=== PATIENT | female | born 1930 | race Hispanic/Latino ===

== ENCOUNTER 2017-12-12 18:47 | Inpatient (IN) | payer SELFPAY ==
--- NOTE | 2017-12-12 19:48 | RAD REPORT ---
EXAM DESCRIPTION: CT - Head Brain Wo Cont - 12/12/2017 7:41 pm CLINICAL HISTORY: Alteration of consciousness COMPARISON: July 2017 TECHNIQUE: Computed axial tomography of the head was obtained. IV contrast was not requested. All CT scans are performed using dose optimization technique as appropriate and may include automated exposure control or mA/KV adjustment according to patient size. FINDINGS: An intracranial bleed is not seen . The ventricles are normal in caliber. Cerebral atrophy is noted. No extra-axial fluid collection is noted. Moderate low-density areas within periventricular, deep and subcortical white matter likely represent ischemic changes secondary to small vessel disease. Fluid within the sinuses/ mastoids is not seen. IMPRESSION: No acute intracranial abnormality is seen. If patient's symptoms persist MRI of the bra in would be recommended.
[2017-12-12] MEDS ORDERED: NA CHLORIDE 0.9% 500 ML ONE (19:57)
[2017-12-12] MEDS ORDERED: NA CHLORIDE 0.9% 1,000 ML ONE (19:58)
--- NOTE | 2017-12-12 19:58 | RAD REPORT ---
EXAM DESCRIPTION: Cindy Single View12/12/2017 7:47 pm CLINICAL HISTORY: cough COMPARISON: February 2017 FINDINGS: The lungs appear clear of acute infiltrate. The heart is markedly enlarged. Scoliosis inv olves the thoracolumbar spine IMPRESSION: No acute abnormalities displayed
[2017-12-12 20:15] LABS: Absolute Lymphocytes (CBC) 0.8 K/uL (0.7-4.9); Absolute Monocytes 0.4 K/uL (0.1-1.3); Absolute Neutrophil 6.8 K/uL (1.8-8.0); Basophils % 0.7 % (0-1.3); Eosinophils % 1.8 % (0-4.4); Hematocrit 42.9 % (36.0-45.0); Lymphocytes % 9.3 % (15.3-44.8); MCV 92.4 fL (80-100); MPV 9.3 fL (7.6-11.3); Monocytes % 5.3 % (3.3-12.3); RBC Red Blood Cell Count 4.65 M/uL (3.86-4.86)
[2017-12-12 21:09] LABS: CKMB Creatine Kinase MB 3.7 ng/ml (0.3-4.0)
[2017-12-12 21:15] LABS: Albumin 3.9 g/dL (3.2-5.5); Bilirubin Direct 0.3 mg/dL (0-0.2); Bilirubin Total 0.6 mg/dL (0.3-1.2); Magnesium 2.1 mg/dL (1.8-2.5); Protein, Total 7.2 g/dL (6.0-8.3)
[2017-12-12 21:19] LABS: Potassium 5.5 mEq/L (3.6-5.0)
--- NOTE | 2017-12-12 21:19 | ER ---
Nurse's Notes [facility] Name: Jael Williamson Age: 87 yrs Sex: Female : 1930 Arrival Date: 12/12/2017 Time: 18:48 Bed 4 Private MD: Diagnosis: Cardiomegaly;Atrial fibrillation and flutter;Syncope and collapse;Scoliosis;Unspecified kidney failure;Hyperkalemia Presentation: 12/12 18:43 Presenting complaint: EMS states: Pt was sitting in her chair at home and family stated sv that she became unresponsive and wasn't answering anything. Pt was having irregular breathing upon EMS arrival. EMS stated pt is more alert and awake than when they picked her up. BP on arrival 80/42, NS 200 ml bolus given, BP up to 138/75. EKG Afib 55, ASA 324 mg PO given. EN route pt pulled out her IV to the right FA. Family stated to EMS last time she was like this was because of dehydration. Transition of care: patient was not received from another setting of care. Onset of symptoms was December 12, 2017. Care prior to arrival: Medication(s) given: ASA, 81 mg, x 4, Normal saline infusion, 200 mls. 18:43 Method Of Arrival: EMS: [facility] sv 18:43 Acuity: CHER 2 sv Triage Assessment: 18:53 General: Appears in no apparent distress. comfortable, slender, Behavior is sv cooperative. Pain: Denies pain. EENT: No signs and/or symptoms were reported regarding the EENT system. Neuro: Level of Consciousness is awake, alert, confused, Oriented to person, Moves all extremities. Speech is normal. Cardiovascular: Patient's skin is warm and dry. Pulses are 3+ in right radial artery and left radial artery. Respiratory: Respiratory effort is even, unlabored, Respiratory pattern is regular, symmetrical. Derm: Skin is normal. Historical: - Allergies: 18:53 No Known Allergies; sv - Home Meds: 22:12 metoprolol tartrate 50 mg Oral tab once daily [Active]; bp - PMHx: 18:53 Atrial Fib; Dementia; Hypertension; sv - PSHx: 18:53 None; sv - Immunization history:: Adult Immunizations up to date. - Family history:: not pertinent. - Social history:: Smoking status: Patient/guardian denies using tobacco. Screenin:02 Abuse screen: Denies threats or abuse. Denies injuries from another. Nutritional sv screening: No deficits noted. Tuberculosis screening: No symptoms or risk factors identified. Fall Risk No fall in past 12 months (0 pts). Secondary diagnosis (15 points) dementia, IV access (20 points). Ambulatory Aid- None/Bed Rest/Nurse Assist (0 pts). Gait- Weak (10 pts.). Mental Status- Overestimates/Forgets Limitations (15 pts.). Total Gaytan Fall Scale indicates High Risk Score (45 or more points). Fall prevention measures have been instituted. Side Rails Up X 2 Frequent Obs/Assessments Occuring. Assessment: 19:00 Reassessment: RECD REPORT FROM DEYA OAKLEY. 87YO HF P/W POSSIBLE AMS, FOUND TO BE bp HYPOTENSIVE ON SCENE. NS GIVEN EN ROUTE, PT NOW AO4. PT AND FAMILY POOR HISTORIANS. 19:01 Reassessment: See triage assessment. sv 19:53 Reassessment: PT RETURNED FROM CT. LAB AT B/S FOR BLOOD DRAW. bp 21:26 Reassessment: STRAIGHT CATH BY ED STAFF. ADMIT IN PROCESS, ALL CURRENT ORDERS COMPLETED.bp 23:30 Reassessment: REPORT BY HÉCTOR OAKLEY TO VAN OAKLEY. PT SHERI WITH PCT. bp Vital Signs: 18:55 BP 138 / 88; Pulse 65; Resp 20; Pulse Ox 99% on R/A; Pain 0/10; sv 19:00 BP 138 / 88; Pulse 70; Resp 18; Pulse Ox 92% on R/A; Weight 44.91 kg; bp 21:35 BP 169 / 84; Pulse 80; Resp 18; Pulse Ox 95% on R/A; mt 21:38 BP 163 / 92; Pulse 78; Resp 20; Pulse Ox 95% on R/A; mt 22:30 BP 132 / 105; Pulse 72; Resp 23; Pulse Ox 97% ; bp ED Course: 18:48 Patient arrived in ED. sv 18:49 Deya Blanchard, RN is Primary Nurse. sv 18:50 Patient has correct armband on for positive identification. Placed in gown. Bed in low sv position. Side rails up X2. banker mason on. Pulse ox on. NIBP on. Head of bed elevated. 18:52 Triage completed. sv 18:54 Arm band placed on right wrist. sv 19:01 Inserted saline lock: 24 gauge in left antecubital area, using aseptic technique. sv ,using aseptic technique. done by Colleen OAKLEY. 19:03 EKG done, by ED staff, reviewed by Jesus Penaloza MD. jb1 19:15 Jerrod Miller MD is Attending Physician. daily 19:15 Report given to Mckay OAKLEY. sv 19:16 Primary Nurse role handed off by Deya Blanchard RN sv 19:27 Mckay Livingston, CELE is Primary Nurse. bp 19:[address] nj 19:41 CT Head Brain wo Cont In Process Unspecified. EDMS 19:41 CT completed. Patient tolerated procedure well. Patient moved back from CT. nj 19:47 X-ray completed. Portable x-ray completed in exam room. Patient tolerated procedure ml well. 19:47 XRAY Chest (1 view) In Process Unspecified. EDMS 21:00 Inserted saline lock: 24 gauge in right hand, using aseptic technique. bp 21:17 Ailin Jane MD is Hospitalizing Provider. daily 21:25 Inserted saline lock: 18 gauge in left EJ, using aseptic technique. Blood collected. bp 21:34 Miller cath inserted, using sterile technique, 16 Fr., by ne, balloon inflated, to ga gravity drainage, urine specimen collected. 22:10 No provider procedures requiring assistance completed. Patient admitted, IV remains in bp place. Administered Medications: Discontinued: NS 0.9% 1000 ml IV at 125 ml/hr continuous 20:02 Drug: NS 0.9% 500 ml Route: IV; Rate: bolus; Site: left forearm; bp 21:22 Follow up: IV Status: Completed infusion bp 20:02 Drug: NS 0.9% 1000 ml Route: IV; Rate: 125 ml/hr; Site: left forearm; bp 21:23 Follow up: IV Status: Order to discontinue infusion bp 21:40 Drug: Lopressor (metoprolol TARTRATE) 50 mg Route: PO; bp 22:39 Follow up: Response: No adverse reaction bp 21:40 Drug: Lovenox 1 mg/kg Route: Sub-Q; Site: left lower abdomen; bp 22:40 Follow up: Response: No adverse reaction bp 21:40 Drug: ProTONIX 40 mg Route: IVP; Site: left jugular; bp 22:40 Follow up: Response: No adverse reaction bp 21:50 Drug: Lasix 20 mg Route: IVP; Site: left jugular; bp 22:41 Follow up: Response: No adverse reaction bp 21:50 Drug: Kayexalate 15 grams Route: PO; bp 22:41 Follow up: Response: No adverse reaction bp 21:50 Drug: Ativan 0.25 mg Route: IVP; Site: left jugular; bp 22:41 Follow up: Response: No adverse reaction bp 21:50 Drug: Ativan 0.25 mg Route: IVP; Site: left jugular; bp 22:42 Follow up: Response: Anxiety decreased bp Outcome: 21:18 Decision to Hospitalize by Provider. daily 12/13 00:09 Admitted to Tele bp Condition: stable Instructed on the need for admit. 00:10 Patient left the ED. bp Signatures: Dispatcher [employer] EDMichael Antonio Stephanie, CELE RN Jerrod Eid MD MD cha Lopez, Melissa ml Jordan, Nathan nj Thompson [facility] Mckay Livingston RN RN bp Corrections: (The following items were deleted from the chart) 12/12 19:05 18:55 Pulse 65bpm; Resp 20bpm; Pulse Ox 99% RA; Pain 0/10; sv sv 21:22 19:00 BP 138 / 88; Pulse 70bpm; Resp 18bpm; Pulse Ox 92% RA; bp bp 22:12 18:53 Home Meds: None; sv bp
--- NOTE | 2017-12-12 21:19 | EDPHYS ---
Physician Documentation [facility] Name: Jael Williamson Age: 87 yrs Sex: Female : 1930 Arrival Date: 12/12/2017 Time: 18:48 Bed 4 Private MD: ED Physician Jerrod Miller HPI: 12/12 19:23 This 87 yrs old Female presents to ER via EMS with complaints of Unresponsive, daily Near Syncope. 19:23 The patient has experienced near-syncope, almost passed out. Onset: The daily symptoms/episode began/occurred just prior to arrival, this morning. Duration: This was a single episode, that lasted 20 second(s). Context: the episode(s) was witnessed, by family. Associated injury: The patient did not suffer any apparent associated injury. Associated signs and symptoms: The patient has no apparent associated signs or symptoms. Current symptoms: Currently, the patient is not experiencing any symptoms. The patient has not experienced similar symptoms in the past. Historical: - Allergies: 18:53 No Known Allergies; sv - Home Meds: 22:12 metoprolol tartrate 50 mg Oral tab once daily [Active]; bp - PMHx: 18:53 Atrial Fib; Dementia; Hypertension; sv - PSHx: 18:53 None; sv - Immunization history:: Adult Immunizations up to date. - Family history:: not pertinent. - Social history:: Smoking status: Patient/guardian denies using tobacco. ROS: 19:23 Constitutional: Negative for fever, chills, and weight loss, Eyes: Negative for injury, daily pain, redness, and discharge, ENT: Negative for injury, pain, and discharge, Neck: Negative for injury, pain, and swelling, Cardiovascular: Negative for chest pain, palpitations, and edema, Respiratory: Negative for shortness of breath, cough, wheezing, and pleuritic chest pain, Abdomen/GI: Negative for abdominal pain, nausea, vomiting, diarrhea, and constipation, Back: Negative for injury and pain, : Negative for injury, bleeding, discharge, and swelling, MS/Extremity: Negative for injury and deformity, Skin: Negative for injury, rash, and discoloration, Psych: Negative for depression, anxiety, suicide ideation, homicidal ideation, and hallucinations, Allergy/Immunology: Negative for hives, rash, and allergies, Endocrine: Negative for neck swelling, polydipsia, polyuria, polyphagia, and marked weight changes, Hematologic/Lymphatic: Negative for swollen nodes, abnormal bleeding, and unusual bruising. 19:23 Neuro: Positive for near syncope, weakness. Exam: 19:23 Constitutional: This is a well developed, well nourished patient who is awake, alert, daily and in no acute distress. Head/Face: Normocephalic, atraumatic. Eyes: Pupils equal round and reactive to light, extra-ocular motions intact. Lids and lashes normal. Conjunctiva and sclera are non-icteric and not injected. Cornea within normal limits. Periorbital areas with no swelling, redness, or edema. ENT: Nares patent. No nasal discharge, no septal abnormalities noted. Tympanic membranes are normal and external auditory canals are clear. Oropharynx with no redness, swelling, or masses, exudates, or evidence of obstruction, uvula midline. Mucous membranes moist. Neck: Trachea midline, no thyromegaly or masses palpated, and no cervical lymphadenopathy. Supple, full range of motion without nuchal rigidity, or vertebral point tenderness. No Meningismus. Chest/axilla: Normal chest wall appearance and motion. Nontender with no deformity. No lesions are appreciated. Cardiovascular: Regular rate and rhythm with a normal S1 and S2. No gallops, murmurs, or rubs. Normal PMI, no JVD. No pulse deficits. Respiratory: Lungs have equal breath sounds bilaterally, clear to auscultation and percussion. No rales, rhonchi or wheezes noted. No increased work of breathing, no retractions or nasal flaring. Abdomen/GI: Soft, non-tender, with normal bowel sounds. No distension or tympany. No guarding or rebound. No evidence of tenderness throughout. Back: No spinal tenderness. No costovertebral tenderness. Full range of motion. Female : Normal external genitalia. Skin: Warm, dry with normal turgor. Normal color with no rashes, no lesions, and no evidence of cellulitis. MS/ Extremity: Pulses equal, no cyanosis. Neurovascular intact. Full, normal range of motion. Neuro: Awake and alert, GCS 15, oriented to person, place, time, and situation. Cranial nerves II-XII grossly intact. Motor strength 5/5 in all extremities. Sensory grossly intact. Cerebellar exam normal. Normal gait. Psych: Awake, alert, with orientation to person, place and time. Behavior, mood, and affect are within normal limits. Vital Signs: 18:55 BP 138 / 88; Pulse 65; Resp 20; Pulse Ox 99% on R/A; Pain 0/10; sv 19:00 BP 138 / 88; Pulse 70; Resp 18; Pulse Ox 92% on R/A; Weight 44.91 kg; bp 21:35 BP 169 / 84; Pulse 80; Resp 18; Pulse Ox 95% on R/A; mt 21:38 BP 163 / 92; Pulse 78; Resp 20; Pulse Ox 95% on R/A; mt 22:30 BP 132 / 105; Pulse 72; Resp 23; Pulse Ox 97% ; bp MDM: 19:15 Patient medically screened. [facility] 21:18 Data reviewed: vital signs, nurses notes, lab test result(s), EKG, radiologic studies, [facility] CT scan, plain films. 12/12 19:23 Order name: Basic Metabolic Panel [facility] 12/12 19:23 Order name: BNP; Complete Time: 21:13 [facility] 12/12 19:23 Order name: CBC with Diff; Complete Time: 20:39 [facility] 12/12 19:23 Order name: Ckmb [facility] 12/12 19:23 Order name: CPK [facility] 12/12 19:23 Order name: LFT's [facility] 12/12 19:23 Order name: Magnesium [facility] 12/12 19:23 Order name: PT-INR [facility] 12/12 19:23 Order name: Ptt, Activated [facility] 12/12 19:23 Order name: Troponin (emerg Dept Use Only); Complete Time: 20:39 [facility] 12/12 19:23 Order name: Lipase [facility] 12/12 19:23 Order name: Urine Culture [facility] 12/12 19:26 Order name: TSH; Complete Time: 21:13 [facility] 12/12 21:34 Order name: Urine Dipstick--Ancillary (enter results) em1 12/12 19:03 Order name: EKG - Nurse/Tech; Complete Time: 19:03 12/12 19:03 Order name: EKG; Complete Time: 19:04 12/12 19:23 Order name: XRAY Chest (1 view); Complete Time: 20:39 [facility] 12/12 19:23 Order name: CT Head Brain wo Cont; Complete Time: 20:39 [facility] 12/12 21:24 Order name: CONS Physician Consult [facility] 12/12 21:24 Order name: Echo with Doppler [facility] 12/12 21:57 Order name: Urine Dipstick-Ancillary [facility] 12/12 19:23 Order name: Cardiac monitoring; Complete Time: 19:52 [facility] 12/12 19:23 Order name: IV Saline Lock; Complete Time: 19:52 [facility] 12/12 19:23 Order name: O2 Per Protocol; Complete Time: 19:52 [facility] 12/12 19:23 Order name: O2 Sat Monitoring; Complete Time: 19:52 [facility] 12/12 19:23 Order name: Urine Dipstick-Ancillary (obtain specimen); Complete Time: 21:33 [facility] 12/12 21:24 Order name: Miller; Complete Time: 21:34 [facility] Administered Medications: Discontinued: NS 0.9% 1000 ml IV at 125 ml/hr continuous 20:02 Drug: NS 0.9% 500 ml Route: IV; Rate: bolus; Site: left forearm; bp 21:22 Follow up: IV Status: Completed infusion bp 20:02 Drug: NS 0.9% 1000 ml Route: IV; Rate: 125 ml/hr; Site: left forearm; bp 21:23 Follow up: IV Status: Order to discontinue infusion bp 21:40 Drug: Lopressor (metoprolol TARTRATE) 50 mg Route: PO; bp 22:39 Follow up: Response: No adverse reaction bp 21:40 Drug: Lovenox 1 mg/kg Route: Sub-Q; Site: left lower abdomen; bp 22:40 Follow up: Response: No adverse reaction bp 21:40 Drug: ProTONIX 40 mg Route: IVP; Site: left jugular; bp 22:40 Follow up: Response: No adverse reaction bp 21:50 Drug: Lasix 20 mg Route: IVP; Site: left jugular; bp 22:41 Follow up: Response: No adverse reaction bp 21:50 Drug: Kayexalate 15 grams Route: PO; bp 22:41 Follow up: Response: No adverse reaction bp 21:50 Drug: Ativan 0.25 mg Route: IVP; Site: left jugular; bp 22:41 Follow up: Response: No adverse reaction bp 21:50 Drug: Ativan 0.25 mg Route: IVP; Site: left jugular; bp 22:42 Follow up: Response: Anxiety decreased bp Disposition: 12/12/17 21:18 Hospitalization ordered by Ailin Jane for Inpatient Admission. Preliminary diagnosis are Cardiomegaly, Atrial fibrillation and flutter, Syncope and collapse, Scoliosis, Unspecified kidney failure, Hyperkalemia. - Bed requested for Telemetry/MedSurg (Inpatient). - Status is Inpatient Admission. bp - Condition is Fair. - Problem is new. - Symptoms have improved. UTI on Admission? No Signatures: Dispatcher [employer] Deya Luna RN RN sv Webb, Martha, RN RN mw Anderson, Corey, MD MD cha Baxter, Heather, RN RN Mckay Livingston RN RN bp Corrections: (The following items were deleted from the chart) 22:12 18:53 Home Meds: None; bp
[2017-12-12] MEDS ORDERED: PANTOPRAZOLE 40 MG INJ ONE (21:40)
[2017-12-12] MEDS ORDERED: FUROSEMIDE 20 MG/ 2ML VIAL ONE (21:40)
[2017-12-12] MEDS ORDERED: METOPROLOL TAR 50 MG TAB ONE (21:40)
[2017-12-12] MEDS ORDERED: SOD POLYSTYREN SUL 15 GM/60 ML UCUP ONE (21:41)
[2017-12-12] MEDS ORDERED: ENOXAPARIN 60 MG/0.6 ML SQ ONE (21:41)
[2017-12-12] MEDS ORDERED: LORazepam 2 MG/ML VIAL ONE (21:43)
[2017-12-12 21:56] LABS: Protime INR 1.05
[2017-12-12 21:56] LABS: Urine Blood TRACE (NEG); Urine Glucose NEGATIVE (NEG); Urine Protein 1+ (NEG)
[2017-12-12] MEDS ORDERED: ALPRAZOLAM 0.25 MG TABLET PO PRN (21:59)
[2017-12-12] MEDS ORDERED: MORPHINE 4 MG/ML SYR IV PRN (21:59)
[2017-12-12] MEDS ORDERED: ACETAMINOPHEN 500 MG TAB PO PRN (21:59)
--- NOTE | 2017-12-13 07:03 | EKG ---
Test Date: 2017-12-12 Test Time: 18:58:16 Simulation Technician: ISHAN MEASUREMENT RESULTS: Intervals: Rate: 63 RI: QRSD: 82 QT: 470 QTc: 480 [place]: P: RI: QRS: 69 T: 220 INTERPRETIVE STATEMENTS: Atrial fibrillation Moderate voltage criteria for LVH, may be normal variant ST & T wave abnormality, consider inferolateral ischemia Prolonged QT Abnormal ECG Compared to ECG 02/20/2017 18:27:48 Left ventricular hypertrophy now present Prolonged QT interval now present Ventricular premature complex(es) no longer present Electronically Signed On 12-13-17 07:03:13 CDT by Edu Mcclure
--- NOTE | 2017-12-13 07:27 | P.HP ---
Certification for Inpatient Patient admitted to: Inpatient With expected LOS: >2 Midnights Patient will require the following post-hospital care: None Practitioner: I am a practitioner with admitting privileges, knowledge of patient current condition, hospital course, and medical plan of care. Services: Services provided to patient in accordance with Admission requirements found in Title 42 Section 412.3 of the Code of Federal Regulations Patient History Date of Service: 12/12/17 Reason for admission: Altered mental status History of Present Illness: Patient is an 87-year-old female came into the hospital after being found unresponsive. She had an episode where she was not responsive but she finally came too after about 20 seconds. Patient has a history of dementia and atrial fibrillation. Patient is only Urdu speaking. There was no family when I came to see the patient but according to the emergency room when EMS arrived patient was short of breath. Patient has clinically improved since being picked up by EMS. Patient is more alert and her respiratory status is improved. Patient has had a prior episode similar to this when she was dehydrated. In the emergency room she was found have prerenal azotemia and hyperkalemia. She will be admitted to the hospital for further evaluation. Allergies No Known Allergies Allergy (Verified 09/13/16 20:43) Home Medications: Quetiapine [Seroquel*] 25 mg PO DAILY #30 tab 09/08/16 Valsartan [Diovan*] 40 mg PO BID #60 tab 09/14/16 - Past Medical/Surgical History Diabetic: No -: HTN -: Dementia -: Kidney disease Past Surgical History: Unable to obtain - Family History Father History Unknown: Yes Mother History Unknown: Yes - Social History Smoking Status: Never smoker Alcohol use: No CD- Drugs: No Caffeine use: No Review of Systems 10-point ROS is otherwise unremarkable Physical Examination - Vital Signs Temperature: 97.1 F Blood Pressure: 146/82 Pulse: 96 Respirations: 18 Pulse Ox (%): 97 - Physical Exam General: Alert, Oriented x1, Confused HEENT: Atraumatic, PERRLA, Mucous membr. moist/pink, EOMI, Sclerae nonicteric Neck: Supple, 2+ carotid pulse no bruit, No LAD, Without JVD or thyroid abnormality Respiratory: Diminished, Crackles/rales Cardiovascular: Irregular heart rate/rhythm, Systolic murmur Gastrointestinal: Normal bowel sounds, Soft and benign, Non-distended, No tenderness Musculoskeletal: No clubbing, No swelling, No tenderness Integumentary: No rashes Neurological: Normal speech, Normal tone, Sensation intact, Cranial nerves 3-12 intact, Normal affect, Abnormal gait, Abnormal strength Lymphatics: No axilla or inguinal lymphadenopathy - Studies Laboratory Data (last 24 hrs) 12/12/17 21:15: PT 12.4, INR 1.05, APTT 25.1 12/12/17 20:40: Sodium 142, Potassium 5.5 H, BUN 34 H, Creatinine 1.74 H, Glucose 105, Magnesium 2.1, Total Bilirubin 0.6, AST 27, ALT 11, Alkaline Phosphatase 69, Lipase 27 12/12/17 20:02: WBC 8.3, Hgb 14.4, Hct 42.9, Plt Count 141 L 12/12/17 20:02: B-Natriuretic Peptide 555 H Assessment & Plan - Problems (Diagnosis) (1) Hyperkalemia Current Visit: Yes Status: Acute (2) Prerenal azotemia Current Visit: Yes Status: Acute (3) Dehydration Onset Date: 09/14/16 Current Visit: No Status: Acute (4) Left hip pain Onset Date: 09/07/16 Current Visit: No Status: Acute (5) Syncope Onset Date: 09/14/16 Current Visit: No Status: Acute Qualifiers: Encounter type: initial encounter (6) Atrial fibrillation Onset Date: 09/07/16 Current Visit: No Status: Chronic Qualifiers: Atrial fibrillation type: persistent Qualified Code(s): I48.1 - Persistent atrial fibrillation (7) Essential hypertension Current Visit: No Status: Chronic - Plan Plan: 1. IV hydration 2. Recheck potassium level 3. Medication for rate control along with anti coagulation 4. Cardiology consultation 5. Echocardiogram 6. Out of bed and ambulate 7. GI and DVT prophylaxis - Advance Directives Does patient have a Living Will: No Does patient have a Durable POA for Healthcare: No - Code Status/Comfort Care Code Status Assessed: Yes Code Status: Full Code Critical Care: No Time Spent Managing PTS Care (In Minutes): 50
[2017-12-13 07:28] LABS: Absolute Monocytes 0.4 K/uL (0.1-1.3); Absolute Neutrophil 3.4 K/uL (1.8-8.0); Basophils % 0.8 % (0-1.3); Eosinophils % 3.4 % (0-4.4); Hematocrit 40.8 % (36.0-45.0); Lymphocytes % 19.5 % (15.3-44.8); MCH 30.7 pg (27.0-35.0); MCV 93.2 fL (80-100); MPV 9.8 fL (7.6-11.3); Monocytes % 8.6 % (3.3-12.3); RBC Red Blood Cell Count 4.37 M/uL (3.86-4.86)
[2017-12-13 07:45] LABS: Magnesium 1.8 mg/dL (1.8-2.5); Phosphorus 3.9 mg/dL (2.5-4.3)
[2017-12-13] MEDS ORDERED: METOPROLOL TAR 50 MG TAB PO SCH (09:00)
[2017-12-13] MEDS ORDERED: VALSARTAN 40 MG TAB PO SCH (09:00)
[2017-12-13] MEDS ORDERED: QUETIAPINE 25 MG TAB PO SCH ×2 (10:00→23:00)
--- NOTE | 2017-12-13 12:23 | ECHO ---
HEIGHT: 5 ft 1 in WEIGHT: 100 lb 6.4 oz DATE OF STUDY: 12/13/[address]: Jerrod Miller MD 2-DIMENSIONAL: YES M.MODE: YES DOPPLER: YES COLOR FLOW: YES TDS: PORTABLE: DEFINITY: BUBBLE STUDY: DIAGNOSIS: CONGESTIVE HEART FAILURE CARDIAC HISTORY: CATHERIZATION: NO SURGERY: NO PROSTHETIC VALVE: NO PACEMAKER: NO MEASUREMENTS (cm) DIASTOLIC (NORMALS) SYSTOLIC (NORMALS) IVSd 1.3 (0.6-1.2) LA Diam 4.6 (1.9-4.0) LVEF 46% LVIDd 4.9 (3.5-5.7) LVIDs 3.8 (2.0-3.5) %FS 23% LVPWd 1.3 (0.6-1.2) Ao Diam 3.4 (2.0-3.7) 2 DIMENSIONAL ASSESSMENT: RIGHT ATRIUM: DILATED LEFT ATRIUM: DILATED RIGHT VENTRICLE: NORMAL LEFT VENTRICLE: NORMAL TRICUSPID VALVE: NORMAL MITRAL VALVE: NORMAL PULMONIC VALVE: NORMAL AORTIC VALVE: NORMAL PERICARDIAL EFFUSION: NONE AORTIC ROOT: NORMAL LEFT VENTRICULAR WALL MOTION: MILD GLOBAL HYPOKINESIS DOPPLER/COLOR FLOW: MILD TO MODERATE MITRAL AND TRICUSPID REGURGITAITON. COMMENTS: DEPRESSED LEFT VENTRICULAR EJECTION FRACTION. DILATED LEFT AND RIGHT ATRIUM. MILD TO MODERATE MITRAL AND TRICUSPID REGURGITATION. ATRIAL FIBRILLATION 50-70 BEATS PER MINUTE. TECHNOLOGIST: DELFINA QUINTANILLA
--- NOTE | 2017-12-13 16:45 | P.SSS ---
Patient History Date of Service: 12/13/17 Primary Care Provider: Unknown Reason for admission: Altered mental status History of Present Illness: Patient is an 87-year-old female came into the hospital after being found unresponsive. She had an episode where she was not responsive but she finally came too after about 20 seconds. Patient has a history of dementia and atrial fibrillation. Patient is only Czech speaking. There was no family when I came to see the patient but according to the emergency room when EMS arrived patient was short of breath. Patient has clinically improved since being picked up by EMS. Patient is more alert and her respiratory status is improved. Patient has had a prior episode similar to this when she was dehydrated. In the emergency room she was found have prerenal azotemia and hyperkalemia. She will be admitted to the hospital for further evaluation. Allergies No Known Allergies Allergy (Verified 09/13/16 20:43) Home Medications: Metoprolol Tartrate [Lopressor*] 25 mg PO DAILY #30 tab 12/13/17 - Past Medical/Surgical History Diabetic: No -: HTN -: Dementia -: Kidney disease - Family History Father History Unknown: Yes Mother History Unknown: Yes - Social History Smoking Status: Never smoker Alcohol use: No CD- Drugs: No Caffeine use: No Review of Systems 10-point ROS is otherwise unremarkable Physical Examination - Vital Signs Temperature: 97 F Blood Pressure: 145/77 Pulse: 55 Respirations: 16 Pulse Ox (%): 94 - Physical Exam General: In no apparent distress, Oriented x1, Disheveled HEENT: Atraumatic Neck: Supple Respiratory: Clear to auscultation bilaterally, Normal air movement Cardiovascular: Normal S1 S2, Irregular heart rate/rhythm Gastrointestinal: Normal bowel sounds, No tenderness Musculoskeletal: No tenderness Integumentary: No rashes Neurological: Normal gait, Normal speech, Normal strength at 5/5 x4 extr, Normal tone, Normal affect Lymphatics: No axilla or inguinal lymphadenopathy - Studies Laboratory Data (last 24 hrs) 12/12/17 21:15: PT 12.4, INR 1.05, APTT 25.1 12/12/17 20:40: Sodium 142, Potassium 5.5 H, BUN 34 H, Creatinine 1.74 H, Glucose 105, Magnesium 2.1, Total Bilirubin 0.6, AST 27, ALT 11, Alkaline Phosphatase 69, Lipase 27 12/12/17 20:02: WBC 8.3, Hgb 14.4, Hct 42.9, Plt Count 141 L 12/12/17 20:02: B-Natriuretic Peptide 555 H - Diagnosis (Problem(s)) (1) Orthostatic hypotension Status: Resolved (2) Atrial fibrillation Onset Date: 09/07/16 Status: Chronic Qualifiers: Atrial fibrillation type: persistent Qualified Code(s): I48.1 - Persistent atrial fibrillation (3) Essential hypertension Status: Chronic Treatment Summary: Pt was admitted to the hospital after having an episode of unresponsiveness for 20 seconds after which she was better and responding to command and back to her baseline. Pt does have advanced dementia and at baseline is not alert or orientated. -Cardiology was consulted. Who reccs pt be discharged home with lower dose of metoprolol as it possible that pt may have had orthostatic hypotension. -Pt was thus discharged home under stable condition -Pt was getting more agitated while here in the hospital and thus was given a ppx for ativan. - Disposition Disposition: ROUTINE DISCHARGE Condition: GOOD Patient Discharge Instructions: Please f/u with Dr Potter in 1 week post discharge. New medication metoprolol 25mg Daily. It has been decreased from your normal dose of 50mg daily Diet: Regular Activity: Ad arleth
[2017-12-13] MEDS ORDERED: ENOXAPARIN 60 MG/0.6 ML SQ SCH (17:00)
--- NOTE | 2017-12-15 12:20 | CON ---
Date of Consultation: 12/13/2017 Reason For Consultation: Atrial fibrillation and presyncope. History Of Present Illness: Ms. Williamson is 87. She has a history of hypertension, dementia, and at rial fibrillation. Came in with presyncopal episode. Witnessed by the daughter. No chest pain, elena sea, vomiting, diaphoresis, PND, orthopnea, or pedal edema reported. There were no fever or chills r eported. Ms. Williamson had similar symptoms in September of 2016. At that time, she had a normal echoc ardiogram. I had asked at that time that she stops her metoprolol, but there is confusion on what sh e has taken. Her medical records list Seroquel, valsartan, and metoprolol. Allergies: NONE. Review of Systems: Negative. Social History: Negative. Family History: Negative. Medications: As listed earlier. Physical Examination: Vital Signs: Stable. She was in atrial fibrillation at a rate of 80. HEENT: Negative. Neck: Supple. No bruit. Chest: Clear to auscultation and percussion. Cardiac: Revealed atrial fibrillation. No murmurs, gallops, or rubs. Abdomen: Benign. Extremities: Revealed No clubbing, cyanosis, or edema. Diagnostics Data: Showed her creatinine is 1.74. BNP was 555. CT of the head was negative. Chest x-ray was negative. Impression And Plan: Presyncope, more likely secondary to vasovagal reaction or orthostatic hypotens ion. I doubt that we are dealing with sick sinus syndrome, but certainly her metoprolol needs to be decreased or discontinued and I would continue the valsartan and Seroquel. Echocardiogram is pending . Her blood pressure is well controlled. Her atrial fibrillation rate is well controlled. I do not want to embark on a very invasive workup on Ms. Williamson for now considering her age and her renal i nsufficiency. I will see what her echocardiogram shows and if that looks normal, we can probably sen d her home. Case was discussed with Dr. Metcalf. BETZAIDA/EDEL Voice ID: [id number] Report ID: [id number]
== END 2017-12-13 14:38 | disposition home or self-care (01) | DRG 312 ==
LOC: ER 18:47 → ERHOLD 21:21 → 4TH 23:22
PROVIDERS: ADMIT Hospitalist; ATTEND Hospitalist
DX: I95.1 Orthostatic hypotension (principal); I48.1 Persistent atrial fibrillation; I10 Essential (primary) hypertension; F03.90 Unspecified dementia, unspecified severity, without behavioral disturbance, psychotic disturbance, mood disturbance, and anxiety; E87.5 Hyperkalemia; R79.89 Other specified abnormal findings of blood chemistry; E86.0 Dehydration
CPT/HCPCS: 36415; 51702; 70450; 71045; 80048; 80076; 81003; 82550; 82553; 83690; 83735; 83880; 84100; 84443; 84484; 85025; 85610; 85730; 87086; 87088; 93005; 93306; 96361; 96372; 96374; 96375; 99285; C9113; J1650; J1940; J7030

== ENCOUNTER 2018-02-12 14:10 | Emergency (ER) | payer SELFPAY ==
[2018-02-12] MEDS ORDERED: NA CHLORIDE 0.9% 500 ML ONE ×2 (15:10→16:26)
[2018-02-12 15:35] LABS: Absolute Monocytes 0.5 K/uL (0.1-1.3); Absolute Neutrophil 4.4 K/uL (1.8-8.0); Eosinophils % 2.7 % (0-4.4); Hematocrit 42.5 % (36.0-45.0); Lymphocytes % 16.6 % (15.3-44.8); MCH 30.6 pg (27.0-35.0); MPV 9.3 fL (7.6-11.3); Monocytes % 7.5 % (3.3-12.3); RBC Red Blood Cell Count 4.57 M/uL (3.86-4.86)
[2018-02-12 15:48] LABS: Potassium 4.2 mEq/L (3.6-5.0)
[2018-02-12 15:54] LABS: Albumin 3.7 g/dL (3.2-5.5); Bilirubin Direct 0.1 mg/dL (0-0.2); Bilirubin Total 0.8 mg/dL (0.3-1.2); Protein, Total 6.9 g/dL (6.0-8.3)
--- NOTE | 2018-02-12 15:57 | RAD REPORT ---
EXAM DESCRIPTION: RAD - Chest Pa And Lat (2 Views) - 02/12/2018 3:38 pm CLINICAL HISTORY: Fall, chest pain COMPARISON: 12/12/2017 FINDINGS: The lungs are diffusely emphysematous but clear. The heart is moderately enlarged. No jeovanny s fractures appreciated, although bones are quite demineralized. Moderate dextroscoliosis of the thor acic spine. IMPRESSION: Prominent COPD.
[2018-02-12 16:57] LABS: Urine Blood TRACE (NEG); Urine Glucose NEGATIVE (NEG); Urine Protein 1+ (NEG); Urine pH 5.5 (5.0-7.0)
--- NOTE | 2018-02-12 17:16 | RAD REPORT ---
EXAM DESCRIPTION: CT - Abdomen Pelvis Wo Contrast - 02/12/2018 5:02 pm CLINICAL HISTORY: Abdominal pain COMPARISON: November 2016 TECHNIQUE: Computed axial tomography of the abdomen and pelvis was obtained. IV and oral contrast we re not requested. All CT scans are performed using dose optimization technique as appropriate and may include automated exposure control or mA/KV adjustment according to patient size. FINDINGS: The evaluation of solid organs, vessels and bowel is limited secondary to the lack of con trast administration. The heart is enlarged. The liver, and pancreas appear grossly normal. Splenic granulomata are noted. Parapelvic right renal cysts are seen. The left kidney appears grossly normal. There is no evidence of diverticulitis. Gallstones are present without gallbladder wall thickening. IMPRESSION: Cholelithiasis without evidence cholecystitis. No acute abnormality is displayed
--- NOTE | 2018-02-12 17:50 | EDPHYS ---
Physician Documentation [facility] Name: Jael Williamson Age: 87 yrs Sex: Female : 1930 Arrival Date: 02/12/2018 Time: 14:13 Bed 18 Private MD: None, None ED Physician Clayton Taveras HPI: 02/12 17:46 This 87 yrs old Female presents to ER via Ambulatory with complaints of upper rn abd pain and rib pain. 17:46 The patient or guardian reports chest pain that is located primarily in the anterior rn chest wall. Onset: The symptoms/episode began/occurred 2 week(s) ago. The pain does not radiate. Associated signs and symptoms: Pertinent positives: abdominal pain, Pertinent negatives: diaphoresis, lightheadedness, nausea, near syncope, palpitations, shortness of breath, syncope, vomiting. The chest pain is described as sharp. Duration: The patient or guardian reports multiple episodes, that are intermittent. Severity of pain: At its worst the pain was mild in the emergency department the pain has resolved. The patient has experienced similar episodes in the past. Reports fell, hit right knee and right anterior ribs 2 weeks ago, no head injury, has been having pain to right ribs and right mid abdomen since then, intermittent, no fever/vomiting, family convinced her to come in and get evaluated. . Historical: - Allergies: 14:21 No Known Allergies; sv - Home Meds: 14:21 metoprolol tartrate 50 mg Oral tab once daily [Active]; sv - PMHx: 14:21 Atrial Fib; Dementia; Hypertension; sv - PSHx: 14:21 None; sv - Immunization history:: Adult Immunizations up to date. - Social history:: Smoking status: Patient/guardian denies using tobacco. - Ebola Screening: : No symptoms or risks identified at this time. - Family history:: not pertinent. - Hospitalizations: : No recent hospitalization is reported. ROS: 17:46 Constitutional: Negative for fever, chills, and weight loss, Eyes: Negative for injury, rn pain, redness, and discharge, Neck: Negative for injury, pain, and swelling, Cardiovascular: + rib pain Respiratory: Negative for shortness of breath, cough, wheezing, and pleuritic chest pain, Abdomen/GI: Negative for nausea, vomiting, diarrhea, and constipation, MS/Extremity: Negative for injury and deformity, Skin: Negative for injury, rash, and discoloration, Neuro: Negative for headache, weakness, numbness, tingling, and seizure. Exam: 17:46 Constitutional: This is a well developed, well nourished patient who is awake, alert, rn and in no acute distress. Head/Face: Normocephalic, atraumatic. Eyes: Pupils equal round and reactive to light, extra-ocular motions intact. Lids and lashes normal. Conjunctiva and sclera are non-icteric and not injected. Cornea within normal limits. Periorbital areas with no swelling, redness, or edema. Neck: Trachea midline, no thyromegaly or masses palpated, and no cervical lymphadenopathy. Supple, full range of motion without nuchal rigidity, or vertebral point tenderness. No Meningismus. Chest/axilla: Normal chest wall appearance and motion. Nontender with no deformity. No lesions are appreciated. Cardiovascular: Regular rate and rhythm with a normal S1 and S2. No gallops, murmurs, or rubs. Normal PMI, no JVD. No pulse deficits. Respiratory: Lungs have equal breath sounds bilaterally, clear to auscultation and percussion. No rales, rhonchi or wheezes noted. No increased work of breathing, no retractions or nasal flaring. Abdomen/GI: Soft, non-tender, with normal bowel sounds. No distension or tympany. No guarding or rebound. No evidence of tenderness throughout. MS/ Extremity: Pulses equal, no cyanosis. Neurovascular intact. Full, normal range of motion. Equal circumference. Neuro: Awake and alert, GCS 15, oriented to person, place, time, and situation. Cranial nerves II-XII grossly intact. Motor strength 5/5 in all extremities. Sensory grossly intact. Cerebellar exam normal. Normal gait. Vital Signs: 14:22 BP 118 / 73; Pulse 110; Resp 20; Temp 98.5; Pulse Ox 96% ; sv 16:00 BP 110 / 70; Pulse 54; Resp 18 S; Pulse Ox 98% on R/A; Pain 0/10; sg MDM: 14:44 Patient medically screened. rn 17:46 Differential diagnosis: Blunt Chest Trauma Chest Wall Contusion Chest Wall Injury Rib rn Fracture. Data reviewed: vital signs, nurses notes, lab test result(s), radiologic studies, CT scan, plain films, and as a result, I will discharge patient. Counseling: I had a detailed discussion with the patient and/or guardian regarding: the historical points, exam findings, and any diagnostic results supporting the discharge/admit diagnosis, lab results, radiology results, the need for outpatient follow up, to return to the emergency department if symptoms worsen or persist or if there are any questions or concerns that arise at home. Special discussion: Based on the patient's history, exam, and Dx evaluation, there is no indication for emergent intervention or inpatient Tx. It is understood by the patient/guardian that if the Sx's persist or worsen they need to return immediately for re-evaluation. Based on the patient's Hx, exam, and Dx evaluation, there is no indication for emergent surgery or inpatient Tx. It is understood by the patient/guardian that if the Sx's persist or worsen they need to return immediately for re-evaluation. I discussed with the patient/guardian in detail that at this point there is no indication for admission to the hospital. It is understood, however, that if the symptoms persist or worsen the patient needs to return immediately for re-evaluation. ED course: denies current pain. 02/12 14:58 Order name: Basic Metabolic Panel; Complete Time: 16:00 rn 02/12 14:58 Order name: CBC with Diff; Complete Time: 17:20 02/12 14:58 Order name: Creatinine for Radiology; Complete Time: 16:00 02/12 14:58 Order name: Hepatic Function; Complete Time: 16:00 02/12 14:58 Order name: Lipase; Complete Time: 16:00 02/12 14:58 Order name: IV Saline Lock; Complete Time: 15:48 02/12 14:58 Order name: Labs collected and sent; Complete Time: 15:48 02/12 14:58 Order name: XRAY Chest Pa And Lat (2 Views); Complete Time: 16:00 02/12 16:00 Order name: CT Abd/Pelvis - Without Cont; Complete Time: 17:20 02/12 16:50 Order name: Urine Dipstick--Ancillary (enter results); Complete Time: 17:20 ss Administered Medications: 15:48 Drug: NS 0.9% 500 ml Route: IV; Rate: bolus; Site: right antecubital; sg 16:38 Drug: NS 0.9% 500 ml Route: IV; Rate: bolus; Site: left forearm; sg Disposition: 02/12/18 17:50 Discharged to Home. Impression: Rib Contusion, Cholelithiasis. - Condition is Stable. - Discharge Instructions: Rib Contusion, Cholelithiasis. - Medication Reconciliation Form, Thank You Letter, Antibiotic Education, Prescription Opioid Use form. - Follow up: Private Physician; When: As needed; Reason: Recheck today's complaints, Re-evaluation by your physician. - Problem is an ongoing problem. - Symptoms have improved. Signatures: Dispatcher [employer] EDMS Deya Blanchard RN RN sv Gay, Steven, RN RN sg Nieto, Roman, MD MD rn Smirch, Shelby, RN RN ss Corrections: (The following items were deleted from the chart) 17:58 17:50 02/12/2018 17:50 Discharged to Home. Impression: Rib Contusion; Cholelithiasis. ss Condition is Stable. Forms are Medication Reconciliation Form, Thank You Letter, Antibiotic Education, Prescription Opioid Use. Follow up: Private Physician; When: As needed; Reason: Recheck today's complaints, Re-evaluation by your physician. Problem is an ongoing problem. Symptoms have improved. rn
--- NOTE | 2018-02-12 17:50 | ER ---
Nurse's Notes [facility] Name: Jael Williamson Age: 87 yrs Sex: Female : 1930 Arrival Date: 02/12/2018 Time: 14:13 Bed 18 Private MD: None, None Diagnosis: Rib Contusion;Cholelithiasis Presentation: 02/12 14:18 Presenting complaint: Child states: fall injury a week ago. c/o abd pain and right rib sv pain. Transition of care: patient was not received from another setting of care. Onset of symptoms was February 05, 2018. Care prior to arrival: None. 14:18 Method Of Arrival: Ambulatory sv 14:18 Acuity: CH[facility] 3 sv Historical: - Allergies: 14:21 No Known Allergies; sv - Home Meds: 14:21 metoprolol tartrate 50 mg Oral tab once daily [Active]; sv - PMHx: 14:21 Atrial Fib; Dementia; Hypertension; sv - PSHx: 14:21 None; sv - Immunization history:: Adult Immunizations up to date. - Social history:: Smoking status: Patient/guardian denies using tobacco. - Ebola Screening: : No symptoms or risks identified at this time. - Family history:: not pertinent. - Hospitalizations: : No recent hospitalization is reported. Vital Signs: 14:22 BP 118 / 73; Pulse 110; Resp 20; Temp 98.5; Pulse Ox 96% ; sv 16:00 BP 110 / 70; Pulse 54; Resp 18 S; Pulse Ox 98% on R/A; Pain 0/10; sg ED Course: 14:13 Patient arrived in ED. mr 14:13 None, None is Private Physician. mr 14:21 Triage completed. sv 14:21 Arm band placed on right wrist. sv 14:44 Clayton Taveras MD is Attending Physician. rn 15:31 Patient has correct armband on for positive identification. Placed in gown. Bed in low mh5 position. Call light in reach. Side rails up X2. Adult w/ patient. Warm blanket given. Pulse ox on. NIBP on. 15:32 Initial lab(s) drawn, by me, sent to lab. Inserted saline lock: 22 gauge in right mh5 forearm, using aseptic technique. Blood collected. 15:37 Patient moved to radiology via stretcher. jr1 15:37 X-ray completed. Patient tolerated procedure well. jr1 15:37 Patient moved back from radiology. jr1 15:38 XRAY Chest Pa And Lat (2 Views) In Process Unspecified. EDMS 15:47 Wade Hendrickson, RN is Primary Nurse. 17:02 CT Abd/Pelvis - Without Cont In Process Unspecified. EDMS Administered Medications: 15:48 Drug: NS 0.9% 500 ml Route: IV; Rate: bolus; Site: right antecubital; sg 16:38 Drug: NS 0.9% 500 ml Route: IV; Rate: bolus; Site: left forearm; sg Outcome: 17:50 Discharge ordered by . rn 17:58 Patient left the ED. ss Signatures: Dispatcher [employer] EDDeya Hills RN RN Wade Hendrickson, RN RN Rachelle Rodriges mr Simmons, Lorena jr1 Clayton Taveras MD MD rn Smirch, Shelby, RN RN Rachelle Alvarado [facility]
== END 2018-02-12 17:58 | disposition home or self-care (01) ==
LOC: ER 14:10
DX: K80.20 Calculus of gallbladder without cholecystitis without obstruction (principal); S20.20XA Contusion of thorax, unspecified, initial encounter; W19.XXXA Unspecified fall, initial encounter; Y93.89 Activity, other specified; Y92.9 Unspecified place or not applicable; I10 Essential (primary) hypertension; I48.91 Unspecified atrial fibrillation
CPT/HCPCS: 36415; 71046; 74176; 80048; 80076; 81003; 83690; 85025; 99284

== ENCOUNTER 2018-06-21 12:44 | Emergency (ER) | payer SELFPAY ==
[2018-06-21 13:49] LABS: Blood Gas Oxyhemoglobin 91.8 % (94-97); Blood O2 Saturation 93.6 % (92-98.5)
[2018-06-21 13:55] LABS: Absolute Lymphocytes (CBC) 0.8 K/uL (0.7-4.9); Absolute Monocytes 0.5 K/uL (0.1-1.3); Absolute Neutrophil 4.4 K/uL (1.8-8.0); Basophils % 1.2 % (0-1.3); Eosinophils % 2.2 % (0-4.4); Hematocrit 41.8 % (36.0-45.0); MCH 31.8 pg (27.0-35.0); MCV 93.4 fL (80-100); MPV 10.2 fL (7.6-11.3); Monocytes % 7.7 % (3.3-12.3); RBC Red Blood Cell Count 4.48 M/uL (3.86-4.86)
[2018-06-21 14:01] LABS: Protime INR 1.05
[2018-06-21 14:31] LABS: Albumin 3.5 g/dL (3.4-5.0); Bilirubin Direct 0.2 mg/dL (0-0.2); Bilirubin Total 0.8 mg/dL (0.2-1.0); Magnesium 2.6 mg/dL (1.8-2.4); Potassium 5.2 mmol/L (3.5-5.1); Protein, Total 7.4 g/dL (6.4-8.2); Troponin (Emerg Dept Use Only) 0.03 ng/mL (0.0-0.045)
--- NOTE | 2018-06-21 14:39 | RAD REPORT ---
EXAM DESCRIPTION: [facility] Single View06/21/2018 2:12 pm CLINICAL HISTORY: Shortness of breath COMPARISON: February 2018 FINDINGS: Moderate bilateral pulmonary opacities are seen with small pleural effusions. . The heart is moderately enlarged IMPRESSION: These findings probably represent CHF
[2018-06-21] MEDS ORDERED: NA CHLORIDE 0.9% 500 ML ONE (14:41)
[2018-06-21] MEDS ORDERED: SOD POLYSTYREN SUL 15 GM/60 ML UCUP ONE (14:56)
[2018-06-21 15:47] LABS: Urine Blood TRACE (NEG); Urine Glucose NEGATIVE (NEG); Urine Protein 1+ (NEG); Urine Specific Gravity 1.025 (1.005-1.030)
[2018-06-21 15:58] LABS: Urine Bacteria <20 /HPF (<20); Urine Culture Reflex Order NOT NEEDED
--- NOTE | 2018-06-21 16:27 | EDPHYS ---
Physician Documentation [facility] Name: Jael Williamson Age: 87 yrs Sex: Female : 1930 Arrival Date: 06/21/2018 Time: 12:58 Bed 7 Private MD: ED Physician Kwaku Garrett HPI: 06/21 15:00 This 87 yrs old Female presents to ER via EMS with complaints of Breathing pm1 Difficulty. 15:00 The patient has shortness of breath at rest. Onset: The symptoms/episode began/occurred pm1 last night. Duration: The symptoms are continuous. The patient's shortness of breath is aggravated by nothing, is alleviated by application of supplemental oxygen. Associated signs and symptoms: Pertinent positives: altered mental status last night when oxygen was low, Pertinent negatives: chest pain, non-productive cough, fever. Severity of symptoms: in the emergency department the symptoms have improved. The patient has experienced similar episodes in the past, a few times. The patient has not recently seen a physician, and does not have an established primary care provider. patient presenting to the ER with complaints of shortness of breath. last night the patient was complaining of shortness of breath. Her daughter had a home pulse ox and reports that is was in the 70s. they used another family members supplemental O2 and she felt better until the O2 tank ran out.. Historical: - Allergies: 13:05 No Known Allergies; ph - Home Meds: 13:05 metoprolol tartrate 50 mg Oral tab once daily [Active]; ph - PMHx: 13:05 Atrial Fib; Dementia; Hypertension; ph - PSHx: 13:05 None; ph - Immunization history:: Adult Immunizations. - Social history:: Smoking status: . - Ebola Screening: : Patient denies travel to an Ebola-affected area in the 21 days before illness onset. ROS: 15:00 Constitutional: Negative for fever, chills, and weight loss, Eyes: Negative for injury, pm1 pain, redness, and discharge, ENT: Negative for injury, pain, and discharge, Neck: Negative for injury, pain, and swelling, Cardiovascular: Negative for chest pain, palpitations, and edema. 15:00 Abdomen/GI: Negative for abdominal pain, nausea, vomiting, diarrhea, and constipation, Back: Negative for injury and pain, : Negative for injury, bleeding, discharge, and swelling, MS/Extremity: Negative for injury and deformity, Skin: Negative for injury, rash, and discoloration, Neuro: Negative for headache, weakness, numbness, tingling, and seizure. 15:00 Respiratory: Positive for shortness of breath, Negative for cough, sputum production, wheezing. Exam: 15:00 Constitutional: This is a well developed, well nourished patient who is awake, alert, pm1 and in no acute distress. Head/Face: Normocephalic, atraumatic. Eyes: Pupils equal round and reactive to light, extra-ocular motions intact. Lids and lashes normal. Conjunctiva and sclera are non-icteric and not injected. Cornea within normal limits. Periorbital areas with no swelling, redness, or edema. ENT: Nares patent. No nasal discharge, no septal abnormalities noted. Tympanic membranes are normal and external auditory canals are clear. Oropharynx with no redness, swelling, or masses, exudates, or evidence of obstruction, uvula midline. Mucous membranes moist. Neck: Trachea midline, no thyromegaly or masses palpated, and no cervical lymphadenopathy. Supple, full range of motion without nuchal rigidity, or vertebral point tenderness. No Meningismus. Chest/axilla: Normal chest wall appearance and motion. Nontender with no deformity. No lesions are appreciated. Cardiovascular: Regular rate and rhythm with a normal S1 and S2. No gallops, murmurs, or rubs. Normal PMI, no JVD. No pulse deficits. Respiratory: Lungs have equal breath sounds bilaterally, clear to auscultation and percussion. No rales, rhonchi or wheezes noted. No increased work of breathing, no retractions or nasal flaring. Abdomen/GI: Soft, non-tender, with normal bowel sounds. No distension or tympany. No guarding or rebound. No evidence of tenderness throughout. Back: No spinal tenderness. No costovertebral tenderness. Full range of motion. Skin: Warm, dry with normal turgor. Normal color with no rashes, no lesions, and no evidence of cellulitis. MS/ Extremity: Pulses equal, no cyanosis. Neurovascular intact. Full, normal range of motion. 15:00 Neuro: Orientation: is normal, Motor: is normal, moves all fours, Sensation: is normal, no obvious gross deficits. Vital Signs: 13:03 BP 163 / 110; Pulse 95; Resp 26; Temp 98.0; Pulse Ox 93% on R/A; Weight 40.82 kg; ph 14:06 BP 163 / 121; Pulse 108; Resp 17; Pulse Ox 95% on 3 lpm NC; tw2 14:44 BP 169 / 106; Pulse 110; Resp 17; Pulse Ox 97% on R/A; tw2 15:54 BP 150 / 137; Pulse 108; Resp 24; Pulse Ox 95% on 3 lpm NC; tw2 MDM: 13:35 Patient medically screened. pm1 16:22 Data reviewed: vital signs. Data interpreted: Pulse oximetry: on room air is 95 %. pm1 Interpretation: normal. Counseling: I had a detailed discussion with the patient and/or guardian regarding: the historical points, exam findings, and any diagnostic results supporting the discharge/admit diagnosis, lab results, radiology results, the need for further work-up and treatment in the hospital. 16:30 Refusal of service: The patient/guardian displays adequate decision making capability pm1 and despite a detailed discussion of alternatives, benefits, risks, and consequences refuses: Admission to the hospital for further work-up and treatment, Patient wants to go home because she feels better and there two daughters want to take her home. 06/21 13:30 Order name: Basic Metabolic Panel; Complete Time: 14:32 tw2 06/21 13:30 Order name: CBC with Diff; Complete Time: 14:18 tw2 06/21 13:30 Order name: LFT's; Complete Time: 14:32 tw2 06/21 13:30 Order name: Magnesium; Complete Time: 14:32 tw2 06/21 13:30 Order name: NT PRO-BNP; Complete Time: 14:32 tw2 06/21 13:30 Order name: PT-INR; Complete Time: 14:22 tw2 06/21 13:30 Order name: Troponin (emerg Dept Use Only); Complete Time: 14:32 tw2 06/21 13:30 Order name: XRAY Chest (1 view); Complete Time: 14:42 tw2 06/21 13:30 Order name: EKG; Complete Time: 13:30 tw2 06/21 13:35 Order name: ABG; Complete Time: 14:18 pm1 06/21 13:43 Order name: Urine Microscopic Only; Complete Time: 16:01 pm1 06/21 15:33 Order name: Urine Dipstick--Ancillary (enter results) eb 06/21 13:30 Order name: Cardiac monitoring; Complete Time: 13:59 tw2 06/21 13:30 Order name: EKG - Nurse/Tech; Complete Time: 13:59 tw2 06/21 13:30 Order name: IV Saline Lock; Complete Time: 13:59 tw2 06/21 13:30 Order name: Labs collected and sent; Complete Time: 13:59 tw2 06/21 13:30 Order name: O2 Per Protocol; Complete Time: 13:59 tw2 06/21 13:30 Order name: O2 Sat Monitoring; Complete Time: 13:59 tw2 06/21 13:43 Order name: Urine Dipstick-Ancillary (obtain specimen); Complete Time: 15:06 pm1 06/21 13:58 Order name: Straight Cath - Urine; Complete Time: 13:59 tw2 Administered Medications: 14:42 Drug: NS 0.9% 500 ml Volume: 500 ml; Route: IV; Rate: 1 bolus; Site: right forearm; tw2 15:30 Follow up: IV Status: Completed infusion; IV Intake: 500ml tw2 14:56 Drug: Kayexalate 30 grams Route: PO; tw2 16:22 Follow up: Response: No adverse reaction tw2 Disposition: 06/22 06:03 Co-signature as Attending Physician, Kwkau Garrett MD I agree with the assessment and kdr plan of care. Disposition: 06/21/18 16:26 Patient has left against medical advice. Impression: Acute combined systolic (congestive) and diastolic (congestive) heart failure, Dyspnea, Hypoxia, Unspecified atrial fibrillation, Hyperkalemia, Chronic renal failure. - Patients states they are going to Home. - Condition is Stable. - Discharge Instructions: Atrial Fibrillation, Heart Failure, Hyperkalemia, Shortness of Breath. Follow up: Emergency Department; When: As needed; Reason: Trouble breathing, Worsening of condition. Follow up: Ailin Webb MD; When: Upon discharge from the Emergency Department; Reason: Recheck today's complaints, Continuance of care, Re-evaluation by your physician. - Problem is new. - Symptoms have improved. Signatures: Dispatcher [employer] EDMS Kwaku Garrett MD MD [facility] Lisa Nagel RN RN ss Luz Morales RN RN ph Ayush Cardenas, OFFICE MACHINES WIRER OFFICE MACHINES WIRER pm1 Mariola Wheeler RN RN tw2 Corrections: (The following items were deleted from the chart) 06/21 16:26 16:26 06/21/2018 16:26 Patients has left against medical advice. Impression: Acute pm1 combined systolic (congestive) and diastolic (congestive) heart failure; Dyspnea; Hypoxia. Patient states they are going to Home. Condition is Stable. Follow up: Emergency Department; When: As needed; Reason: Trouble breathing, Worsening of condition. Follow up: Mohammad Attar; When: Upon discharge from the Emergency Department; Reason: Recheck today's complaints, Continuance of care, Re-evaluation by your physician. Problem is new. Symptoms have improved. pm1 16:27 16:26 06/21/2018 16:26 Patients has left against medical advice. Impression: Acute pm1 combined systolic (congestive) and diastolic (congestive) heart failure; Dyspnea; Hypoxia; Unspecified atrial fibrillation. Patient states they are going to Home. Condition is Stable. Follow up: Emergency Department; When: As needed; Reason: Trouble breathing, Worsening of condition. Follow up: Mohammad Attar; When: Upon discharge from the Emergency Department; Reason: Recheck today's complaints, Continuance of care, Re-evaluation by your physician. Problem is new. Symptoms have improved. pm1 16:35 16:27 06/21/2018 16:26 Patients has left against medical advice. Impression: Acute ss combined systolic (congestive) and diastolic (congestive) heart failure; Dyspnea; Hypoxia; Unspecified atrial fibrillation; Hyperkalemia; Chronic renal failure. Patient states they are going to Home. Condition is Stable. Discharge Instructions: Atrial Fibrillation, Heart Failure, Shortness of Breath, Hyperkalemia. Follow up: Emergency Department; When: As needed; Reason: Trouble breathing, Worsening of condition. Follow up: Mohammad Attar; When: Upon discharge from the Emergency Department; Reason: Recheck today's complaints, Continuance of care, Re-evaluation by your physician. Problem is new. Symptoms have improved. pm1
--- NOTE | 2018-06-21 16:27 | ER ---
Nurse's Notes [facility] Name: Jael Williamson Age: 87 yrs Sex: Female : 1930 Arrival Date: 06/21/2018 Time: 12:58 Bed 7 Private MD: Diagnosis: Acute combined systolic (congestive) and diastolic (congestive) heart failure;Dyspnea;Hypoxia;Unspecified atrial fibrillation;Hyperkalemia;Chronic renal failure Presentation: 06/21 12:59 Presenting complaint: EMS states: Family reports that pt began having difficulty ph breathing last night w/ rapid respirations and pursed lip breathing, family able to obtain oxygen and placed pt on 4 L NC but tank ran out this morning, Spo2 95% on 4L NC, 4 lead EKG showed irregular rhythm w/ rate 80s-120s, hx of a-fib, family also reports hx of dementia but states that she is more altered than normal. Transition of care: patient was not received from another setting of care. Onset of symptoms was June 21, 2018. Risk Assessment: Do you want to hurt yourself or someone else? Patient reports no desire to harm self or others. Initial Sepsis Screen: Does the patient meet any 2 criteria? No. Patient's initial sepsis screen is negative. Does the patient have a suspected source of infection? No. Patient's initial sepsis screen is negative. Care prior to arrival: None. 12:59 Method Of Arrival: EMS: [facility] 12:59 Acuity: [facility] 2 ph Triage Assessment: 13:00 General: Appears. Respiratory: Reports shortness of breath at rest Onset: The tw2 symptoms/episode began/occurred yesterday, the patient has mild shortness of breath. Historical: - Allergies: 13:05 No Known Allergies; ph - Home Meds: 13:05 metoprolol tartrate 50 mg Oral tab once daily [Active]; ph - PMHx: 13:05 Atrial Fib; Dementia; Hypertension; ph - PSHx: 13:05 None; ph - Immunization history:: Adult Immunizations. - Social history:: Smoking status: . - Ebola Screening: : Patient denies travel to an Ebola-affected area in the 21 days before illness onset. Screenin:59 Abuse screen: Denies threats or abuse. Nutritional screening: No deficits noted. tw2 Tuberculosis screening: No symptoms or risk factors identified. Fall Risk Secondary diagnosis (15 points) dementia, impaired mobility. Assessment: 13:00 General: Appears in no apparent distress. slender, Behavior is agitated, anxious. Pain: tw2 Complains of pain in hips and right shoulder. Neuro: Level of Consciousness is awake, alert, obeys commands, Oriented to person. Cardiovascular: Rhythm is atrial fibrillation With PVC's. Cardiovascular: Heart tones S1 S2 Patient's skin is warm and dry. Respiratory: Airway is patent Respiratory effort is even, labored, Respiratory pattern is regular, Breath sounds are clear bilaterally. Parent/caregiver reports the patient having shortness of breath at rest. Respiratory: Parent/caregiver reports the patient having pt has not slept. GI: No signs and/or symptoms were reported involving the gastrointestinal system. Abdomen is flat, Bowel sounds present X 4 quads. : No signs and/or symptoms were reported regarding the genitourinary system. EENT: No signs and/or symptoms were reported regarding the EENT system. Derm: No signs and/or symptoms reported regarding the dermatologic system. Skin is fragile, is thin, Skin is dry, Skin temperature is warm. Musculoskeletal: Range of motion: intact in all extremities. 14:00 Reassessment: No changes from previously documented assessment. Patient and/or family tw2 updated on plan of care and expected duration. Pain level reassessed. 15:00 Reassessment: No changes from previously documented assessment. Patient and/or family tw2 updated on plan of care and expected duration. Pain level reassessed. 15:55 Reassessment: No changes from previously documented assessment. Patient and/or family tw2 updated on plan of care and expected duration. Pain level reassessed. Vital Signs: 13:03 BP 163 / 110; Pulse 95; Resp 26; Temp 98.0; Pulse Ox 93% on R/A; Weight 40.82 kg; ph 14:06 BP 163 / 121; Pulse 108; Resp 17; Pulse Ox 95% on 3 lpm NC; tw2 14:44 BP 169 / 106; Pulse 110; Resp 17; Pulse Ox 97% on R/A; tw2 15:54 BP 150 / 137; Pulse 108; Resp 24; Pulse Ox 95% on 3 lpm NC; tw2 ED Course: 12:58 Patient arrived in ED. ph 12:58 Bed in low position. Call light in reach. Side rails up X2. Adult w/ patient. Cardiac tw2 monitor on. Pulse ox on. NIBP on. Warm blanket given. 13:00 Arm band placed on. tw2 13:03 Triage completed. ph 13:18 Mariola Wheeler RN is Primary Nurse. tw2 13:35 Ayush Cardenas NP is PHCP. pm1 13:35 Kwaku Garrett MD is Attending Physician. pm1 13:45 Missed attempt(s): 22 gauge in right antecubital area. Bleeding controlled, band aid tw2 applied, catheter tip intact. Missed attempt(s): 22 gauge in right antecubital area. Bleeding controlled, band aid applied, catheter tip intact. Inserted saline lock: 22 gauge in right forearm, using aseptic technique. Blood collected. 14:03 EKG done, by medicine technologist. reviewed by Ayush Cardenas NP. at1 14:10 X-ray completed. Portable x-ray completed in exam room. Patient tolerated procedure mh1 well. 14:12 XRAY Chest (1 view) In Process Unspecified. EDMS 15:20 Straight cath inserted, using sterile technique, 18 Fr. Specimen obtained. Returned tw2 cloudy urine noted. Patient tolerated poorly. pt screaming and scratching, pt had 2 daughters at bedside, Marybeth Gusman served as public speaker and assisted in holding pt. 16:24 Ailin Webb MD is Referral Physician. pm1 16:34 No provider procedures requiring assistance completed. IV discontinued, intact, ss bleeding controlled, No redness/swelling at site. Pressure dressing applied. Administered Medications: 14:42 Drug: NS 0.9% 500 ml Volume: 500 ml; Route: IV; Rate: 1 bolus; Site: right forearm; tw2 15:30 Follow up: IV Status: Completed infusion; IV Intake: 500ml tw2 14:56 Drug: Kayexalate 30 grams Route: PO; tw2 16:22 Follow up: Response: No adverse reaction tw2 Intake: 15:30 IV: 500ml; Total: 500ml. tw2 Outcome: 16:34 AMA AMA form signed ss 16:34 Condition: good 16:34 Discharge instructions given to patient, family, Instructed on discharge instructions, follow up and referral plans. Demonstrated understanding of instructions, follow-up care. 16:35 Patient left the ED. ss Signatures: Dispatcher [employer] Ioana Pleitez 1 Lisa Nagel, RN RN Kalli Wylie, marketing compliance manager EKG Tat1 Luz Morales, RN RN Ayush Cardenas, REPEATER CHIEF REPEATER CHIEF pm1 Mariola Wheeler RN RN tw2
--- NOTE | 2018-06-22 04:18 | EKG ---
Test Date: 2018-06-21 Test Time: 13:50:21 Gelatin Powder Mixer: AG/S MEASUREMENT RESULTS: Intervals: Rate: 100 IA: QRSD: 96 QT: 382 QTc: 492 [place]: P: IA: QRS: 71 T: -30 INTERPRETIVE STATEMENTS: Atrial fibrillation with premature ventricular or aberrantly conducted complexes Nonspecific ST abnormality Abnormal QRS-T angle, consider primary T wave abnormality Abnormal ECG Compared to ECG 12/12/2017 18:58:16 Ventricular premature complex(es) now present T-wave abnormality now present Left ventricular hypertrophy no longer present Possible ischemia no longer present Prolonged QT interval no longer present ST (T wave) deviation still present Electronically Signed On 06-22-18 04:17:14 CDT by Gerardo Potter
== END 2018-06-21 16:35 | disposition left against medical advice (07) ==
LOC: ER 12:44
DX: I50.41 Acute combined systolic (congestive) and diastolic (congestive) heart failure (principal); R09.02 Hypoxemia; I48.91 Unspecified atrial fibrillation; E87.5 Hyperkalemia; N18.9 Chronic kidney disease, unspecified
CPT/HCPCS: 36415; 51702; 71045; 80048; 80076; 81003; 81015; 82805; 83735; 83880; 84484; 85025; 85610; 93005; 96360; 99285